=== PATIENT | male | born 1955 | race Caucasian/White ===

== ENCOUNTER 2017-10-30 11:28 | Inpatient (IN) ==
[2017-10-30] MEDS ORDERED: IOPAMIDOL 100 ML BOTTLE IV ONE (11:29)
--- NOTE | 2017-10-30 12:02 | Emergency Department Note ---
Syncope HPI - General Chief Complaint: Syncope Stated Complaint: Syncope/rectal pain Time Seen by Provider: 10/30/17 11:46 Source: patient Mode of arrival: ambulatory Limitations: no limitations - History of Present Illness HPI Narrative: 62-year-old male presents from [facility] due to a syncopal episode and rectal pain 3-4 days. He states he had a cold last week but he is over that now. He states that in the last couple of days he has had a lot of pressure in his rectal area. He has had frequent bowel movements and has had small stool with each movement. He was sent over from [facility] and had a rectal exam there which she could not tolerate due to pain. He denies any blood in his stool. He states that this morning when he was getting up from having a bowel movement he stood up and had a syncopal episode and has right-sided rib pain. He states it hurts when he moves and takes a deep breath. No shortness of breath really. He also had some nausea but no vomiting after he had a syncopal episode. He has had a colonoscopy previously and had diverticulosis but no diverticulitis. He feels kind of weak because he has had a lot of pain. He does not want any pain medications because he does not want to constipate himself. He is not nauseated at this time. No diabetes, hypertension, he does have a history of thyroid disease. He has mild headache due to not having caffeine. He does not have any head pain but may have hit his head when he fell. Is not on blood thinners. - Related Data Home Medications Medication Instructions Recorded Confirmed levothyroxine 100 mcg capsule 100 mcg PO QDAY 10/30/17 10/30/17 Allergies Allergy/AdvReac Type Severity Reaction Status Date / Time shellfish derived Allergy Hives Verified 10/30/17 11:29 Review of Systems All systems ED: reviewed and negative except as stated. Past Medical History - Past Medical History Medical history: Reports: thyroid disease Psychiatric history: Reports: no psych history Surgical history ED: Reports: non-contributory Family history: Reports: non-contributory - Social History smoking status: Never smoker Alcohol use: Reports: Unknown Drug use: Reports: none Physical Exam Limitations: no limitations General appearance: alert, in no apparent distress, other (pale) Head: atraumatic Eye: Present: normal appearance. Absent: conjunctival injection Neck: Present: normal inspection, full ROM Chest: Present: normal inspection, symmetric chest wall rise, tenderness (right anterior lower rib pain) Respiratory: Present: normal lung sounds bilaterally Cardiovascular: Present: regular rate, normal heart sounds Abdominal: Present: soft, normal bowel sounds. Absent: tenderness Extremities: Present: normal inspection, full ROM Neurological: Present: alert, oriented X3 Psychiatric: Present: normal affect, normal mood Skin: Present: warm, dry, intact Course Course Narrative: Talked with Dr. Rod and he will admit the patient and examined him under anesthesia tomorrow. Vital Signs Temperature 97.8 F 10/30/17 11:29 Pulse Rate 92 H 10/30/17 11:29 Respiratory Rate 16 10/30/17 11:29 Blood Pressure 144/78 10/30/17 11:29 Pulse Oximetry (%) 97 10/30/17 11:29 Temperature 99.0 F H 10/30/17 17:02 Pulse Rate 83 10/30/17 17:02 Respiratory Rate 16 10/30/17 17:02 Blood Pressure 126/52 10/30/17 17:02 Pulse Oximetry (%) 96 10/30/17 17:02 Syncope - Lab Data Lab results reviewed: Yes I reviewed the patient's lab results. Result diagrams: 10/30/17 12:19 10/30/17 12:19 Lab Results 10/30/17 10/30/17 10/30/17 Range/Units 12:19 12:19 12:19 WBC 16.2 H (4.5-11.0) K/mcL RBC 4.77 (4.50-5.90) M/mcL Hgb 14.9 (13.5-16.5) g/dL Hct 44.3 (41.0-55.0) % POC Hct 44.0 (41.0-55.0) % MCV 92.9 (80.0-100.0) fL MCH 31.3 (26.0-34.0) pg MCHC 33.7 (31.0-36.0) g/dL RDW 12.8 (11.5-14.5) % Plt Count 243 (140-440) K/mcL MPV 7.7 (7.4-10.4) fL Total Counted 100 Seg Neutrophils % 84 H (38-78) % Band Neutrophils % Not Reportable Lymphocytes % 10 L (15-49) % Monocytes % (Manual) 6 (1-12) % Platelet Estimate Normal (NORMAL) RBC Morphology Normal (NORMAL) VBG Lactic Acid 0.8 (0.5-2.2) mmol/L POC Sodium 138 (133-145) mmol/L Sodium 137 (133-145) mmol/L POC Potassium 4.1 (3.3-5.1) mmol/L Potassium 4.3 (3.3-5.1) mmol/L POC Chloride 100 (96-108) mmol/L Chloride 100 (96-108) mmol/L Carbon Dioxide 26 (22-30) mmol/L POC Total CO2 29 (22-30) mmol/L Anion Gap 11.0 (8-16) POC BUN 17 (8-23) mg/dl BUN 14 (8-23) mg/dl Creatinine 1.0 (0.7-1.2) mg/dl POC Creatinine 1.0 (0.7-1.2) mg/dl GFR Calculation 80 Glucose 105 (70-105) mg/dL POC Glucose 106 H (70-105) mg/dL Calcium 8.6 (8.6-10.4) mg/dl POC WB Ioniz Calcium 1.13 L (1.16-1.32) mmol/L Total Bilirubin 0.6 (0.0-1.0) mg/dL AST 18 (0-37) U/l ALT 14 (0-40) U/l Alkaline Phosphatase 57 (39-117) U/L Total Protein 6.9 (5.9-8.4) gm/dL Albumin 4.2 (3.2-5.2) gm/dL Globulin 2.7 (2.2-3.7) gm/dL Albumin/Globulin Ratio 1.6 (1.0-2.3) - Radiology Data Radiology results reviewed: Yes I reviewed the patient's radiology results. Fractured left seventh rib. No pneumothorax or hemothorax. Disposition Pt seen by [facility]/PA only: Yes Clinical Impression: Rectal mass, Leukocytosis Disposition: Xfer As Inpt ([facility]) Condition: Fair
[2017-10-30 12:51] LABS: Mean Cell Volume 92.9 fL (80.0-100.0); Mean Corpuscular HGB Conc 33.7 g/dL (31.0-36.0); Mean Corpuscular Hemoglobin 31.3 pg (26.0-34.0); Platelet Count 243 K/mcL (140-440); RBC 4.77 M/mcL (4.50-5.90); Red Cell Distribution Width 12.8 % (11.5-14.5)
--- NOTE | 2017-10-30 12:59 | XRay Report ---
HISTORY: Reason for Exam:Rib pain after a fall FINDINGS: There is a subtle nondisplaced fracture laterally in the left seventh rib. Remainder of the ribs are normal. There is a band of discoid atelectasis at the left posterior costophrenic sulcus. No pleural effusion or pneumothorax are present. The right lung is clear. The heart size and mediastinum are normal. IMPRESSION: Fractured left seventh rib Interpreted and Authenticated by: Jay Multani 10/30/17
[2017-10-30 13:10] LABS: ALT/SGPT 14 U/l (0-40); Albumin 4.2 gm/dL (3.2-5.2); Albumin/Globulin Ratio 1.6 (1.0-2.3); Alkaline Phosphatase 57 U/L (39-117); Blood Urea Nitrogen 14 mg/dl (8-23)
[2017-10-30 13:20] LABS: Lymphocytes % 10 % (15-49); Monocytes % (Manual) 6 % (1-12); Platelet Estimate NORMAL (NORMAL); RBC Morphology NORMAL (NORMAL); Segmented Neutrophils % 84 % (38-78)
--- NOTE | 2017-10-30 15:26 | Cat Scan Report ---
CLINICAL INFORMATION: Reason for Exam:rectal pain COMPARISON: None. TECHNIQUE: Following oral contrast in the injection of intravenous contrast the patient was scanned during the portal venous phase from the diaphragm through the symphysis pubis. Sagittal and coronal reformats were created.. FINDINGS: There are bands of consolidated lung parenchyma in the posterior basal segments of both lower lobes. This could be scar or atelectasis. Liver is normal in size. There are few scattered simple cysts of both left and right lobe. No solid mass is seen within the liver. The bile ducts are nondilated. The gallbladder is normal with no stones or thickening of the wall. (Spleen is normal in size and homogeneous. There is no mass or inflammation the pancreas. The adrenals are normal. A 1.5 cm cortical cyst is present anteriorly and medially in the middle third of the right kidney. There is no kidney stone mass or hydronephrosis in either kidney. The ureters are decompressed. Oral contrast passed through stomach and small bowel and colon to the level of the rectum. The appendix is noninflamed. No abnormality seen within the stomach or small intestine. There are multiple diverticula in the sigmoid colon. Associated with this is thickening of the muscular folds in the distal sigmoid colon. There is no evidence of acute diverticulitis. The lumen of the rectum appears narrowed and distorted in the wall is asymmetrically thickened. No discrete mass is seen. The perirectal fat is normal. There is no evidence of pelvic adenopathy, abscess or ascites. No abnormality is detected in the prostate, seminal vesicles or bladder. IMPRESSION: Sigmoid diverticulosis but without diverticulitis Asymmetric thickening of the wall of the proximal rectum. This could be peristalsis, proctitis or possibly rectal tumor. This could be further evaluated by sigmoidoscopy. Norma Bowling was called with results Interpreted and Authenticated by: Jay Multani 10/30/17
[2017-10-30] MEDS ORDERED: ONDANSETRON 4 MG/2 ML VIAL IV PRN ×2 (15:58→17:58)
[2017-10-30] MEDS ORDERED: 0.9 % SODIUM CHLORIDE 1,000 ML IV SCH (16:00)
[2017-10-30] MEDS ORDERED: HYDROmorphone 2 MG/ML VIAL IV PRN ×2 (16:03→17:58)
[2017-10-30] MEDS ORDERED: PROMETHAZINE 25 MG/ML VIAL IV PRN (17:58)
[2017-10-30] MEDS: 0.9 % SODIUM CHLORIDE 1,000 ML IV SCH (19:23)
--- NOTE | 2017-10-30 19:59 | General Surg History&Physical ---
History of Present Illness Patient information: Note initiated : 10/30/17 at 7:56 pm Service Date, if different from initiated Date: [] Patient: Roman Hussein 62 y/o M admitted on 10/30/17 for Syncope/rectal pain. Chief Complaint: [Perianal pain] HPI: Mr. Hussein is a 62 year old M with history of severe perianal pain fever leukocytosis. The patient states that he felt pain in his rectal area 12 sitting late Thursday evening. This pain became much worse and shortly thereafter he had 4 loose bowel movements. He felt slightly better on but late evening he developed more severe pain with fever up to 100. He was up to the bathroom because of the need to have bowel movement and felt cold and sweaty with nausea. This resulted in a syncopal episode and an unwitnessed fall about 4 AM. Thereafter he had right-sided chest pain and pleuritic discomfort. He was seen in the minor care clinic and referred to the emergency room where he was noted to have a very tender perianal area which is difficult to examine but with a suggestion of fullness. He had a CT scan which shows an inflammatory area of the right buttock which is poorly defined but is suggestive of a perirectal abscess. His white count is over 16,000 and he still has a low-grade fever. He is admitted and will be started on antibiotics with plans for examination under anesthesia and drainage of perirectal abscess in the morning. Review of Systems All systems PM: reviewed and no additional remarkable complaints except as stated - Respiratory other (Right sided chest pain due to rib fracture) Past History Past medical history: Hypothyroidism Past surgical history: Right knee arthroscopy Past family history: Father in his 80s of unknown cause Mother alive age 86 with Preston's disease Sister with diabetes mellitus Past social history: Never alcohol use No tobacco use No drug use Medications and Allergies Home Medications Medication Instructions Recorded Confirmed Type levothyroxine 100 mcg capsule 100 mcg PO QDAY 10/30/17 10/30/17 History Allergies Allergy/AdvReac Type Severity Reaction Status Date / Time No Known Drug Allergies Allergy Unverified 10/30/17 18:59 Exam Temp Pulse Resp BP Pulse Ox 99.0 F H 83 16 126/52 96 10/30/17 17:02 10/30/17 17:02 10/30/17 17:02 10/30/17 17:02 10/30/17 17:02 - General physical appearance well developed, well nourished, no distress - Eyes PERRL, normal ocular movement - ENT normal pinna, normal nares, normal mucosa, no hearing loss, no congestion - Head Head exam IM: Present: atraumatic, normocephalic - Neck no masses, no bruits, trachea midline, no lymphadectomy, no venous distension - Cardiovascular Cardiovascular exam IM: Present: normal rate and rhythm - Respiratory normal expansion, normal respiratory effort, clear to percussion, clear to auscultation, other (Mild splinting on right side with tenderness over posterior lateral rib in T6-T8.) - Abdomen Abdomen: Present: soft (I told he did not have an option of not taken), non tender, bowel sounds Hernia: Present: none - Genitourinary Present: normal penis with no external lesions - Rectum Rectum: Present: normal sphincter tone, no hemorrhoids, no tenderness, no masses , no bleeding, other (Tight anal sphincter with tenderness of the entire perianal area; unable to do examination) - Integumentary Present: no rash, no growths, no abnormal pigmentation - Neurologic Present: normal coordination, normal sensation - Musculoskeletal Present: normal gait, normal posture - Psychiatric Present: oriented to time, oriented to person, oriented to place, speech is normal, memory intact Assessment and Plan (1) Perirectal abscess Patient is started on Zosyn and Flagyl tonight He is counseled for examination under anesthesia with drainage of perirectal abscess in the morning Status: Acute (2) Hypothyroidism Status: Acute Qualifiers: Hypothyroidism type: unspecified Qualified Code(s): E03.9 - Hypothyroidism , unspecified
[2017-10-30] MEDS: metroNIDAZOLE 500 MG/100 ML BAG IV SCH (20:18)
[2017-10-30] MEDS: PIPERACILLIN SODIUM/TAZOBACTAM 3.375 GM in DEXTROSE 5% IN WATER 50 ML IV SCH (21:33)
[2017-10-30] MEDS: ACETAMINOPHEN 750 MG/75 ML BOTTLE IV PRN (22:27)
[2017-10-31] MEDS: metroNIDAZOLE 500 MG/100 ML BAG IV SCH ×4 (00:10→19:14)
[2017-10-31] MEDS: PIPERACILLIN SODIUM/TAZOBACTAM 3.375 GM in DEXTROSE 5% IN WATER 50 ML IV SCH ×5 (01:18→23:15)
[2017-10-31] MEDS: ACETAMINOPHEN 750 MG/75 ML BOTTLE IV PRN (05:17)
[2017-10-31] MEDS: 0.9 % SODIUM CHLORIDE 1,000 ML IV SCH ×5 (06:46→23:14)
[2017-10-31 06:51] LABS: Basophils # (Auto) 0 K/mcL (0.0-0.3); Basophils % (Auto) 0.2 % (0.0-2.0); Eosinophils # (Auto) 0.2 K/mcL (0.0-0.7); Eosinophils % (Auto) 1.6 % (0.0-7.0); Granulocytes % (Auto) 80.1 % (38.0-78.0); Lymphocytes # (Auto) 1.1 K/mcL (1.5-4.8); Lymphocytes % (Auto) 8.7 % (15.5-49.0); Mean Cell Volume 93.3 fL (80.0-100.0); Mean Corpuscular HGB Conc 33.3 g/dL (31.0-36.0); Mean Corpuscular Hemoglobin 31.1 pg (26.0-34.0); Monocytes # (Auto) 1.1 K/mcL (0.1-0.9); Monocytes % (Auto) 9.4 % (1.0-12.0); Platelet Count 217 K/mcL (140-440); RBC 4.48 M/mcL (4.50-5.90); Red Cell Distribution Width 12.8 % (11.5-14.5)
[2017-10-31 07:20] LABS: ALT/SGPT 11 U/l (0-40); Albumin 3.9 gm/dL (3.2-5.2); Albumin/Globulin Ratio 1.6 (1.0-2.3); Alkaline Phosphatase 51 U/L (39-117); Bilirubin,Direct < 0.2 mg/dL (0.0-0.3); Blood Urea Nitrogen 12 mg/dl (8-23); Gamma Glutamyl Transpeptidase 18 U/L (8-61); Uric Acid 3.9 mg/dL (2.5-8.0)
[2017-10-31] MEDS ORDERED: LEVOTHYROXINE 100 MCG TABLET PO SCH (07:30)
[2017-10-31 08:37] LABS: Erythrocyte Sedimentation Rate 19 mm/hr (0-15)
[2017-10-31] MEDS ORDERED: DEXAMETHASONE 10 MG/ML VIAL IV ONE (09:10)
[2017-10-31] MEDS ORDERED: ONDANSETRON 4 MG/2 ML VIAL IV ONE (09:10)
[2017-10-31] MEDS ORDERED: PROPOFOL 200 MG/20 ML VIAL IV ONE (09:10)
[2017-10-31] MEDS ORDERED: KETAMINE 100 MG/ML ML IV ONE (09:10)
[2017-10-31] MEDS ORDERED: fentaNYL 250 MCG/5 ML VIAL IV ONE (09:10)
[2017-10-31] MEDS ORDERED: LIDOCAINE HCL/PF 100 MG/5 ML SYRINGE IV ONE (09:10)
[2017-10-31] MEDS ORDERED: GLYCOPYRROLATE 0.2 MG/ML VIAL IV ONE (09:10)
[2017-10-31] MEDS ORDERED: KETOROLAC 30 MG/ML VIAL IV ONE (09:10)
[2017-10-31] MEDS ORDERED: MIDAZOLAM 2 MG/2 ML VIAL IV ONE (09:10)
--- NOTE | 2017-10-31 09:30 | Brief Operative Note ---
Date of procedure: 10/31/17 Pre-op diagnosis: perirectal abscess Post-op diagnosis: other (perirectal abscess) Procedure: excisional drainage of perirectal abscess Grafts/Implants: No Anesthesia: GLMA Findings: large perirectal abscess of posterior left perirectal space Complications: none Surgeon: Viviane Rod Estimated blood loss (cc): 10 Specimens Removed/Pathology: other (drainage for culture and sensitivity) Condition: stable Disposition: PACU
[2017-10-31] MEDS ORDERED: LACTATED RINGERS 250 ML IV PRN (09:38)
[2017-10-31] MEDS ORDERED: IPRATROPIUM/ALBUTEROL 3 ML AMPUL.NEB NEB PRN (09:38)
[2017-10-31] MEDS ORDERED: MEPERIDINE 25 MG/ML SYRINGE IV PRN (09:38)
[2017-10-31] MEDS ORDERED: METHOCARBAMOL 1,000 MG/10 ML VIAL IV PRN (09:38)
[2017-10-31] MEDS ORDERED: FLUMAZENIL 0.1 MG/ML ML IV PRN (09:38)
[2017-10-31] MEDS ORDERED: ONDANSETRON 4 MG/2 ML VIAL IV PRN ×2 (09:38→10:15)
[2017-10-31] MEDS ORDERED: NALOXONE HCL 0.4 MG/ML VIAL IV PRN (09:38)
[2017-10-31] MEDS ORDERED: fentaNYL 100 MCG/2 ML VIAL IV PRN (09:38)
[2017-10-31] MEDS ORDERED: BENZOCAINE/MENTHOL 1 LOZENGE PO PRN (09:38)
[2017-10-31] MEDS ORDERED: ACETAMINOPHEN 1,000 MG/100 ML BOTTLE IV ONE (09:38)
[2017-10-31] MEDS ORDERED: PROMETHAZINE 25 MG/ML VIAL IV PRN ×2 (09:38→10:15)
[2017-10-31] MEDS ORDERED: LACTATED RINGERS 1,000 ML IV SCH (09:45)
[2017-10-31] MEDS ORDERED: HYDROmorphone 2 MG/ML VIAL IV PRN (10:15)
[2017-10-31] MEDS ORDERED: 0.9 % SODIUM CHLORIDE 1,000 ML IV SCH (10:15)
[2017-11-01] MEDS: metroNIDAZOLE 500 MG/100 ML BAG IV SCH ×4 (00:21→19:48)
[2017-11-01] MEDS: 0.9 % SODIUM CHLORIDE 1,000 ML IV SCH ×2 (02:28→10:51)
[2017-11-01] MEDS: LEVOTHYROXINE 100 MCG TABLET PO SCH ×2 (05:07→06:40)
[2017-11-01] MEDS: PIPERACILLIN SODIUM/TAZOBACTAM 3.375 GM in DEXTROSE 5% IN WATER 50 ML IV SCH ×4 (05:08→23:38)
[2017-11-01 06:20] LABS: Basophils # (Auto) 0 K/mcL (0.0-0.3); Basophils % (Auto) 0.3 % (0.0-2.0); Eosinophils # (Auto) 0.2 K/mcL (0.0-0.7); Eosinophils % (Auto) 1.6 % (0.0-7.0); Granulocytes % (Auto) 81.9 % (38.0-78.0); Lymphocytes # (Auto) 1.1 K/mcL (1.5-4.8); Lymphocytes % (Auto) 9.4 % (15.5-49.0); Mean Cell Volume 92.9 fL (80.0-100.0); Mean Corpuscular HGB Conc 34.2 g/dL (31.0-36.0); Mean Corpuscular Hemoglobin 31.8 pg (26.0-34.0); Monocytes # (Auto) 0.8 K/mcL (0.1-0.9); Monocytes % (Auto) 6.8 % (1.0-12.0); Platelet Count 208 K/mcL (140-440); RBC 4.05 M/mcL (4.50-5.90)
[2017-11-01 07:20] LABS: ALT/SGPT 9 U/l (0-40); Albumin 3.7 gm/dL (3.2-5.2); Albumin/Globulin Ratio 1.8 (1.0-2.3); Alkaline Phosphatase 44 U/L (39-117); Bilirubin,Direct < 0.2 mg/dL (0.0-0.3); Blood Urea Nitrogen 13 mg/dl (8-23); Gamma Glutamyl Transpeptidase 20 U/L (8-61); Uric Acid 3.2 mg/dL (2.5-8.0)
[2017-11-01] MEDS: ACETAMINOPHEN 750 MG/75 ML BOTTLE IV PRN ×2 (07:48→21:07)
[2017-11-01] MEDS ORDERED: FLU VACC QS2017-18 36MOS UP/PF 60 MCG/0.5 ML SYRINGE IM ONE (10:00)
--- NOTE | 2017-11-01 13:17 | General Surgery Progress Note ---
Subjective Patient reports: feels better, pain is less, tolerating a regular diet, flatus, no bowel movement, afebrile Narrative: Note initiated : 11/01/17 at 1:14 pm Service Date, if different from initiated Date: [] Patient: Roman Hussein 62 y/o M admitted on 10/30/17 for Syncope/rectal pain. patient is doing much better. He has much less pain and denies nausea. He has modest amount of drainage from the perianal wound. He has been afebrile. He is having flatus but no bowel movement yet. He had some difficulty voiding but is voiding well at this time. He feels as if he completely empties his bladder.] Objective Temp Pulse Resp BP Pulse Ox 98.5 F 57 L 20 121/71 96 11/01/17 06:46 11/01/17 04:00 11/01/17 06:46 11/01/17 06:46 11/01/17 06:46 - Additional Data Intake & Output - Last 24 hours: Intake & Output 10/30/17 10/31/17 11/01/17 11/02/17 05:59 05:59 05:59 05:59 Intake Total 900 / 900 3990 / 3990 1820 / 1820 Output Total 1150 / 1150 1770 / 1770 1475 / 1475 Balance -250 / -250 2220 / 2220 345 / 345 Weight 212 lb 8 oz 219 lb - Respiratory normal respiratory effort, clear to auscultation - Cardiovascular Cardiovascular exam: Present: normal rate and rhythm, RRR, +S1, +S2. Absent: JVD, tachycardia - Abdomen soft (Abdominal exam is totally benign), non tender - Rectum normal sphincter tone, other (Tenderness and erythema is gradually resolving; induration around the opening of the operative site is much less) - Integumentary no rash, no growths, no abnormal pigmentation - Neurologic normal coordination, normal sensation - Musculoskeletal normal gait, normal posture - Psychiatric oriented to time, oriented to person, oriented to place, speech is normal, memory intact - Labs 11/01/17 04:43 11/01/17 04:43 Diabetes panel 11/01/17 Range/Units 04:43 Sodium 141 (133-145) mmol/L Potassium 4.1 (3.3-5.1) mmol/L Chloride 107 (96-108) mmol/L Carbon Dioxide 24 (22-30) mmol/L BUN 13 (8-23) mg/dl Creatinine 0.9 (0.7-1.2) mg/dl Glucose 96 (70-105) mg/dL Calcium 8.4 L (8.6-10.4) mg/dl AST 13 (0-37) U/l ALT 9 (0-40) U/l Alkaline Phosphatase 44 (39-117) U/L Total Protein 5.8 L (5.9-8.4) gm/dL Albumin 3.7 (3.2-5.2) gm/dL Triglycerides 62 (<150) mg/dl Calcium panel 11/01/17 Range/Units 04:43 Calcium 8.4 L (8.6-10.4) mg/dl Phosphorus 3.1 (2.7-4.5) mg/dL Albumin 3.7 (3.2-5.2) gm/dL Pituitary panel 11/01/17 Range/Units 04:43 Sodium 141 (133-145) mmol/L Potassium 4.1 (3.3-5.1) mmol/L Chloride 107 (96-108) mmol/L Carbon Dioxide 24 (22-30) mmol/L BUN 13 (8-23) mg/dl Creatinine 0.9 (0.7-1.2) mg/dl Glucose 96 (70-105) mg/dL Calcium 8.4 L (8.6-10.4) mg/dl Adrenal panel 11/01/17 Range/Units 04:43 Sodium 141 (133-145) mmol/L Potassium 4.1 (3.3-5.1) mmol/L Chloride 107 (96-108) mmol/L Carbon Dioxide 24 (22-30) mmol/L BUN 13 (8-23) mg/dl Creatinine 0.9 (0.7-1.2) mg/dl Glucose 96 (70-105) mg/dL Calcium 8.4 L (8.6-10.4) mg/dl Total Bilirubin 0.4 (0.0-1.0) mg/dL AST 13 (0-37) U/l ALT 9 (0-40) U/l Alkaline Phosphatase 44 (39-117) U/L Total Protein 5.8 L (5.9-8.4) gm/dL Albumin 3.7 (3.2-5.2) gm/dL Assessment and Plan (1) Perirectal abscess Status: Acute Assessment and plan: Continue IV antibiotics Saline lock IV Regular diet Probable discharge in the morning Current Visit: Yes (2) Hypothyroidism Status: Acute Current Visit: Yes - Time Spent With Patient Total time spent is greater than 50% in coordination of care (as documented) at patient's floor/unit and/or counseling patient:
[2017-11-02] MEDS: metroNIDAZOLE 500 MG/100 ML BAG IV SCH ×3 (00:24→14:49)
[2017-11-02] MEDS: LEVOTHYROXINE 100 MCG TABLET PO SCH (05:59)
[2017-11-02] MEDS: PIPERACILLIN SODIUM/TAZOBACTAM 3.375 GM in DEXTROSE 5% IN WATER 50 ML IV SCH ×2 (06:05→11:36)
--- NOTE | 2017-11-02 08:14 | Operative Note ---
DATE OF OPERATION: 10/31/2017 PREOPERATIVE DIAGNOSIS: Perirectal abscess. POSTOPERATIVE DIAGNOSIS: Perirectal abscess. PROCEDURE: Excisional drainage of perirectal abscess. SURGEON: Viviane Rod M.D. FINDINGS: Large perirectal abscess of the posterior left perirectal space. DESCRIPTION: Under general LMA, the patient was placed in high lithotomy position. The perianal area was prepped and draped in a sterile field. Evaluation revealed a prominence in the left posterior perirectal area. It was aspirated with an 18 gauge needle, and a large amount of pus was removed. A 15 blade was used to enter the abscess cavity, and the surrounding skin was excised to allow free drainage. Finger was placed and the fractionations were broken up. Hemostasis was achieved with electrocautery. The wound was packed with Aquacel AG gauze. A 4 x 4 dressing was placed and was secured with net briefs. The patient tolerated the procedure well. He was awakened, transferred to a bed, and taken to the postanesthetic care unit in stable condition. LCS:rachelle Job ID: [id number] Doc ID: [id number] Viviane Rod M.D.
--- NOTE | 2017-11-02 12:58 | Discharge Summary ---
Providers - Providers Patient information: Note initiated : 11/02/17 at 12:55 pm Service Date, if different from initiated Date: [] Patient: Roman Hussein 62 y/o M admitted on 10/30/17 for Syncope, Rectal Pain/ Perirectal Abscess. Chief Complaint: [] Date of admission: 10/30/17 Discharge date: 11/02/17 Attending physician: Viviane Rod Hospitalization Hospital course: Who presented with a 2 day history of severe perianal pain. The patient was seen in the emergency room where he was noted to have an exquisitely tender perianal area. He was also noted to have leukocytosis. He was admitted and started on antibiotics. He was taken to the OR on 31 October for incision and drainage of a perirectal abscess was undertaken. His white count has slowly decreased and the induration and erythema has resolved. He is clinically stable at this time and is afebrile. He is discharged home with plans for follow-up in the office in 2 weeks. 62-year-old male Discharge diagnosis: Perirectal abscess Reason for admission: Perianal pain Procedures: Excisional debridement of perirectal abscess Pertinent studies/significant findings: CT of abdomen and pelvis with contrast Complications: None Exam Temp Pulse Resp BP Pulse Ox 98.3 F 55 L 18 125/77 95 11/02/17 10:54 11/02/17 04:00 11/02/17 10:54 11/02/17 10:54 11/02/17 10:54 - Head Head exam IM: Present: atraumatic, normal inspection, normocephalic - Neck no masses, no bruits, trachea midline, no lymphadectomy, no venous distension - Cardiovascular Cardiovascular exam IM: Present: normal rate and rhythm, RRR, +S1, +S2. Absent : JVD - Respiratory normal expansion, normal respiratory effort, clear to percussion, clear to auscultation - Abdomen Abdomen: Present: soft, non tender, bowel sounds Hernia: Present: none - Rectum Rectum: Present: normal sphincter tone, no hemorrhoids, no masses, no bleeding, other (Perianal area is healing; there is no major drainage; induration is improving) Discharge Plan - Patient/Caregiver Discharge Instructions Activity: increase activity as tolerated Diet: Regular Diet Additional Instructions: Keep anal area clean after each bowel movement Wear perineal pads to protect clothing from drainage Continue antibiotics for 2 weeks as directed Follow-up in the office in 2 weeks Prescriptions: Ciprofloxacin [Cipro] 500 mg PO BID #30 tab metroNIDAZOLE [Metronidazole] 500 mg PO TID #40 tab - Follow up Plan Follow up with: Ashish Hayes MD [Primary Care Provider] - Disposition: Home, Self-Care Prognosis: Good Rehab Potential: Good I certify that the patient requires SNF services.: No Overall status at discharge: patient is progressing back to baseline Pending Studies Resuscitation Status Full Code Diet Regular Diet Start [facility] Nov 01 1312 Metronidazole (Flagyl) 500 mg in 100 mls @ 100 mls/hr IV Q6H [facility] Last Infusion: 11/02/17 08:36 Dose: 0 mls/hr Admin: 11/02/17 07:36 Dose: 100 mls/hr Infusion: 11/02/17 01:26 Dose: 0 mls/hr Admin: 11/02/17 00:24 Dose: 100 mls/hr Infusion: 11/01/17 20:50 Dose: 0 mls/hr Admin: 11/01/17 19:48 Dose: 100 mls/hr Infusion: 11/01/17 14:13 Dose: 0 mls/hr Admin: 11/01/17 13:13 Dose: 100 mls/hr Infusion: 11/01/17 07:45 Dose: 100 mls/hr Admin: 11/01/17 06:45 Dose: 100 mls/hr Infusion: 11/01/17 01:25 Dose: 0 mls/hr Admin: 11/01/17 00:21 Dose: 100 mls/hr Infusion: 10/31/17 20:27 Dose: 0 mls/hr Admin: 10/31/17 19:14 Dose: 100 mls/hr Infusion: 10/31/17 15:00 Dose: 0 mls/hr Admin: 10/31/17 13:58 Dose: 100 mls/hr Acetaminophen (Ofirmev) 750 mg in 75 mls @ 150 mls/hr IV Q6HP PRN PRN Reason: PAIN/FEVER > 101 Last Infusion: 11/01/17 21:30 Dose: 0 mls/hr Admin: 11/01/17 21:07 Dose: 200 mls/hr Infusion: 11/01/17 08:18 Dose: 0 mls/hr Admin: 11/01/17 07:48 Dose: 150 mls/hr Piperacillin Sod/Tazobactam (Sod 3.375 gm/ Dextrose) 50 mls @ 100 mls/hr IV Q6H [facility] Last Admin: 11/02/17 11:36 Dose: 100 mls/hr Infusion: 11/02/17 06:36 Dose: 0 mls/hr Admin: 11/02/17 06:05 Dose: 100 mls/hr Infusion: 11/02/17 00:14 Dose: 0 mls/hr Admin: 11/01/17 23:38 Dose: 100 mls/hr Infusion: 11/01/17 18:47 Dose: 0 mls/hr Admin: 11/01/17 18:07 Dose: 100 mls/hr Infusion: 11/01/17 12:52 Dose: 0 mls/hr Admin: 11/01/17 12:21 Dose: 100 mls/hr Infusion: 11/01/17 05:47 Dose: 0 mls/hr Admin: 11/01/17 05:08 Dose: 100 mls/hr Infusion: 10/31/17 23:47 Dose: 0 mls/hr Admin: 10/31/17 23:15 Dose: 100 mls/hr Infusion: 10/31/17 18:38 Dose: 0 mls/hr Admin: 10/31/17 18:08 Dose: 100 mls/hr Infusion: 10/31/17 12:01 Dose: 100 mls/hr Admin: 10/31/17 11:31 Dose: 100 mls/hr Levothyroxine Sodium (Synthroid) 100 mcg PO ACB [facility] Last Admin: 11/02/17 05:59 Dose: 100 mcg Admin: 11/01/17 06:40 Dose: Admin: 11/01/17 05:07 Dose: 100 mcg Ondansetron HCl (Zofran) 4 mg IV Q4HP PRN PRN Reason: PAIN LEVEL 3-6 Last Admin: 10/31/17 14:56 Dose: 4 mg Shift Summary 11/02/17 04:53 Shift Summary by Mirta Betancourt Patient slept well this shift. Ambulated to hallway several times last night. IV on left hand kept SL. Medicated with Ofirmev once this shift with good effect , pain 2/10. Aquacel packing in rectal incision intact, gauze and medipore tape CDI. Voided large amounts, had 1 soft loose BM last night. VSS. Initialized on 11/02/17 04:53 - END OF NOTE
== END 2017-11-02 14:25 | disposition home or self-care (01) | DRG 345 ==
LOC: MEDSUR 11:28 → ED 11:28 → MEDSUR 17:00 → OBSVTOIN 17:02
PROVIDERS: ADMIT Family Medicine Adult Medicine; ATTEND Family Medicine Adult Medicine